=== PATIENT | male | born 1980 | race American Indian/Alaskan Native ===

== ENCOUNTER 2016-05-10 20:33 | Emergency (ER) | payer OTHER ==
[2016-05-10 21:25] VITALS: BP 115/76
--- NOTE | 2016-05-11 02:36 | Emergency Department Report ---
HPI - General Chief Complaint: Urogenital-Male Time Seen by Provider: 05/11/16 02:28 - HPI HPI: 36 y/o male presents to ED stating he got a call from a sex partner that he has been exposed to an STD and might possibly have chlamydia. She states she reports here to be treated. Patient denies any penile discharge or penile pain or scrotum pain or fever or nausea or vomiting or chills. No other problems ED Past Medical Hx - Past Medical History Previous Medical History?: No Additional medical history: blind right eye, heart murmur - Surgical History Past Surgical History?: No - Social History Smoking Status: Current Every Day Smoker Substance Use Type: Marijuana - Medications Home Medications: Home Medications Medication Instructions Recorded Confirmed Last Taken Type metroNIDAZOLE [Flagyl] 500 mg PO ONCE #4 tab 05/11/16 Unknown Rx ED Review of Systems ROS: Stated complaint: POSS STD Other details as noted in HPI Constitutional: denies: chills, fever Eyes: denies: eye pain, eye discharge, vision change ENT: denies: ear pain, throat pain, dental pain, hearing loss, epistaxis, congestion Respiratory: denies: cough, shortness of breath, wheezing Cardiovascular: denies: chest pain, palpitations, edema Endocrine: no symptoms reported Gastrointestinal: denies: abdominal pain, nausea, diarrhea Genitourinary: denies: urgency, dysuria, testicular pain, testicular mass Musculoskeletal: denies: back pain, joint swelling, arthralgia Skin: denies: rash, lesions Neurological: denies: headache, weakness, numbness, paresthesias, confusion, abnormal gait Psychiatric: denies: anxiety, depression Hematological/Lymphatic: denies: easy bleeding, easy bruising Physical Exam - Physical Exam Vital Signs: Vital Signs 05/10/16 21:23 Temperature 98 F Pulse Rate 63 Respiratory 18 Rate Blood Pressure 115/76 O2 Sat by Pulse 100 Oximetry Physical Exam: GENERAL: Alert and oriented x3, no apparent distress, Normal Gait, atraumatic. HEAD: Head is normocephalic and a-traumatic. EYES: Extra ocular muscles are intact. Pupils are equal, round, and reactive to light and accommodation. NECK: Supple. Non edematous, No carotid bruits. No lymphadenopathy or thyromegaly. LUNGS: Symetrical with respiration, No wheezing, no rales or crackles, CTAB. HEART: S1, S2 present, regular rate and rhythm without murmur, no rubs, no gallops. SKIN: Warm and dry, No lesions, No ulceration or induration present. ED Course Vital Signs 05/10/16 21:23 Temperature 98 F Pulse Rate 63 Respiratory 18 Rate Blood Pressure 115/76 O2 Sat by Pulse 100 Oximetry ED Medical Decision Making - Medical Decision Making 36-year-old male presents for exposure to CT and treatment. ED course: Patient received Rocephin 250 mg IM and 1000 mg of azithromycin. Discussed the patient will follow up with health department or family care for further STD screening Discussed treatment with patient. Discussed home medication of metronidazole to treat check. Discussed with patient to read instructions as given. Discussed no intercourse for the next 7-10 days while being treated. Vital signs stable. Patient is in no acute or respiratory distress. Discussed with patient Critical care attestation.: If time is entered above; I have spent that time in minutes in the direct care of this critically ill patient, excluding procedure time. ED Disposition Clinical Impression: Exposure to STD Disposition: DISCHARGED TO HOME OR SELFCARE Is pt being admited?: No Does the pt Need Aspirin: No Condition: Stable Instructions: Chlamydia Infection (ED), Sexually Transmitted Diseases (ED), Trichomoniasis (ED), Safe Sex (ED) Prescriptions: metroNIDAZOLE [Flagyl] 500 mg PO ONCE #4 tab Referrals: [facility] [Outside] - 3-[address] [facility] [Outside] - 3-5 Days [facility] [Outside] - 3-5 Days [facility] [Primary Care Provider] - 3-5 Days YAW HARRINGTON MD [Referring] - 3-5 Days Forms: Work/School Release Form(ED) Time of Disposition: 02:58
[2016-05-11] MEDS ORDERED: ZITHROMAX PO ONE (02:53)
[2016-05-11] MEDS ORDERED: XYLOCAINE 1% MPF 5 mL INFILTRATI ONE (02:53)
[2016-05-11] MEDS ORDERED: ROCEPHIN IM ONE (02:53)
== END 2016-05-11 03:45 | disposition home or self-care (01) ==
LOC: ED 20:33
DX: Z20.2 Contact with and (suspected) exposure to infections with a predominantly sexual mode of transmission (principal); F17.200 Nicotine dependence, unspecified, uncomplicated; F12.90 Cannabis use, unspecified, uncomplicated
CPT/HCPCS: 96372; 99282; J0696